=== PATIENT | female | born 1950 | race Caucasian/White ===

== ENCOUNTER 2017-07-09 19:17 | Emergency (ER) | payer MEDICARE ==
[~2017-07-09 19:17] MED LIST: AZIT500T2 PO; BIO IDENTICAL HORM
[2017-07-09 19:19] VITALS: BP 201/95; PULSE 70; RESP 16; TEMP 98.7; O2SAT 99
--- NOTE | 2017-07-09 20:25 | RADRPT ---
EXAM DATE/TIME: 07/09/2017 20:10 [place] COMPARISON: CHEST PA & LAT, July 05, 2017, 13:46. INDICATIONS : Cough for 3 days. MEDICAL HISTORY : None. SURGICAL HISTORY : None. ENCOUNTER: Initial ACUITY: 1 day PAIN SCORE: 0/10 LOCATION: Bilateral chest FINDINGS: PA and lateral views of the chest demonstrate the lungs to be symmetrically aerated without evidence of mass, infiltrate or effusion. The cardiomediastinal contours are unremarkable. Osseous structure s are intact. CONCLUSION: No evidence of acute cardiopulmonary disease. Carter Sainz MD on July 09, 2017 at 20:22 Board Certified Radiologist. This report was verified electronically.
[2017-07-09] MEDS ORDERED: AUGM875T3 PO (20:29)
[2017-07-09] MEDS ORDERED: ALBU6.7H INH (20:29)
[2017-07-09] MEDS ORDERED: PRED-503 PO (20:29)
[2017-07-09] MEDS ORDERED: predniSONE 20 MG TAB PO ONE (20:30)
[2017-07-09] MEDS ORDERED: AMOXICILLIN/CLAVULANATE K 875 MG TAB PO ONE (20:30)
--- NOTE | 2017-07-09 20:32 | PD ---
HPI Chief Complaint: Cold / Flu Symptoms Time Seen by Provider: 20:25 Travel History International Travel<30 days: No Contact w/Intl Traveler<30days: No Traveled to known affect area: No History of Present Illness HPI 66-year-old white female presents emergency department for evaluation of cough, congestion, shortness of breath and wheezing. Patient states that she's been sick now for 2 weeks. She has been seen at an urgent care and given doxycycline. She states that she has actually had worsening symptoms and a metallic taste which has caused her to decrease her appetite. She states that she had some flulike symptoms initially which included fever, chills, myalgias and arthralgias which did resolve after a few days. Her symptoms now appear to be more localized in her sinuses and her chest. She denies any nausea vomiting. No abdominal pain or diarrhea. No dysuria or frequency. The computer initially noted penicillin as an allergy but the patient adamantly denies a penicillin allergy. She states that she has taken in a salon and Augmentin without any problems. She states that her daughter is allergic to penicillin. [facility] Past Medical History Narrative Medical Retired nurse Medical History: Denies Significant Hx Tetanus Vaccination: < 5 Years Past Surgical History Surgical History: No Previous Surgery Social History Alcohol Use: No Tobacco Use: No Substance Use: No Allergies-Medications (Allergen,Severity, Reaction): Uncoded Allergies: metal (Allergy, Unknown, 07/05/17) topical (Allergy, Unknown, 07/05/17) Reported Meds & Prescriptions Reported Meds & Active Scripts Active Proventil Hfa 6.7 GM Inh (Albuterol Sulfate) 90 Mcg/Act Aer 2 Puff INH Q4-6H PRN Deltasone (Prednisone) 20 Mg Tab 20 Mg PO BID 5 Days Augmentin (Amoxicillin-Clavulanate) 875-125 Mg Tab 1 Tab PO BID Azithromycin 500 Mg Tab 500 Mg PO DAILY Reported [bio identical horm] Review of Systems Except as stated in HPI: all other systems reviewed are Neg Physical Exam Narrative GENERAL: Well-developed, well-nourished in no acute distress. Nontoxic appearing. HEAD: Normocephalic, atraumatic. Patient has some tenderness to palpation of the maxillary sinuses. EYES: Pupils equal round and reactive. Extraocular motions intact. No scleral icterus. No injection or drainage. ENT: TMs clear without erythema. The external auditory canals clear. Nose: clear . Posterior pharynx is pink and moist. No tonsillar edema or exudate. Uvula midline. Airway patent. NECK: Trachea midline.Supple, nontender, moves head freely. No central bony tenderness or spasm. CARDIOVASCULAR: Regular rate and rhythm without murmurs, gallops, or rubs. RESPIRATORY scattered rhonchi with extra wheezes. No Rales. GASTROINTESTINAL: Abdomen soft, non-tender, nondistended. No hepato-splenomegaly , or palpable masses. No guarding. EXTREMITIES: No clubbing, cyanosis, or edema. No joint tenderness, effusion, or edema noted. BACK: Nontender without deformity or crepitance. No flank tenderness. Data Data Last Documented VS Vital Signs Date Time Temp Pulse Resp B/P (MAP) Pulse Ox O2 Delivery O2 Flow Rate FiO2 07/09/17 20:40 22 07/09/17 19:19 98.7 70 201/95 (130) 99 Orders Orders Chest, Pa & Lat (07/09/17 ) Prednisone (Deltasone) (07/09/17 20:30) Albuterol-Ipratropium Neb (Duoneb Neb) (07/09/17 20:30) Amoxicil-Clavulanate (Augmentin) (07/09/17 20:30) Ed Discharge Order (07/09/17 20:55) [facility] Medical Decision Making Medical Screen Exam Complete: Yes Emergency Medical Condition: Yes Medical Record Reviewed: Yes Interpretation(s) Chest x-ray: Negative for infiltrate. Differential Diagnosis MDM: High Differential diagnoses: Pneumonia, bronchitis, URI, asthma, RAD, legionnaire's disease, SARS, ARDS, influenza, bronchiolitis, RSV,PE,CHF Narrative Course Patient will be given prednisone 60 mg by mouth into dual nebs. Augmentin 875 by mouth. Patient is reexamined. Patient is subjectively feeling better. She has better air movement. Wheezing has decreased. Still has rhonchi. This is bronchitis with reactive airway disease, sinusitis Diagnosis Primary Impression: bronchitis with reactive airway disease Additional Impression: sinusitis Patient Instructions: General Instructions Additional Instructions: Rest. Increase fluids. Tylenol and Advil. Robitussin-DM. Augmentin, prednisone, and albuterol. Followup with your DrStephane in one week. Return to the ER for any problems. Med/Other Pt SpecificInfo: Prescription(s) given Scripts Albuterol 6.7 GM Inh (Proventil Hfa 6.7 GM Inh) 90 Mcg/Act Aer 2 PUFF INH Q4-6H Y for SHORTNESS OF BREATH, #1 INHALER 0 Refills Prov: Daxa Mclean DO 07/09/17 Prednisone (Deltasone) 20 Mg Tab 20 MG PO BID for 5 Days, #10 TAB 0 Refills Prov: Daxa Mclean DO 07/09/17 Amoxicillin-Clavulanate (Augmentin) 875-125 Mg Tab 1 TAB PO BID for Infection, #20 TAB 0 Refills Prov: Daxa Mclean DO 07/09/17 Disposition: 01 DISCHARGE HOME Condition: Stable Milton Wright Jul 09, 2017 20:32
[2017-07-09] MEDS: RESP: ALBUTEROL 2.5 MG/IPRATROPIUM 0.5 MG NEB (SCH) INH (20:33)
== END 2017-07-09 21:35 | disposition home or self-care (01) ==
LOC: NEPK 19:17
DX: J45.909 Unspecified asthma, uncomplicated (principal); J32.9 Chronic sinusitis, unspecified
CPT/HCPCS: 71046; 94640; 94664; 99284; J7512